=== PATIENT | male | born 1985 | race Hispanic/Latino ===

== ENCOUNTER 2020-11-12 09:48 | Emergency (ER) | payer SELFPAY | END 2020-11-12 10:49 | disposition home or self-care (01) | LOC: EDH 09:48 | DX: H10.021 Other mucopurulent conjunctivitis, right eye (principal); Z72.0 Tobacco use ==

== ENCOUNTER 2020-12-25 03:07 | Inpatient (IN) | payer OTHER ==
[~2020-12-25] VITALS: Ht 167.6 cm; Wt 107.8 kg
[2020-12-25] VITALS (22 sets, daily range): BP systolic 120–152; BP diastolic 61–94
[2020-12-25] MEDS ORDERED: SODIUM CHLORIDE 0.9% 1000ML 1,000 ML IV ONE (03:26)
[2020-12-25] MEDS ORDERED: ONDANSETRON HCL 4 MG/2 ML VIAL ONE ×5 (03:26→15:45)
[2020-12-25] MEDS ORDERED: HYDROMORPHONE HCL 0.5 MG/0.5 ML ML ONE ×2 (03:33→05:22)
[2020-12-25 03:38] LABS: BASOPHILS % (AUTO) 0.3 % (0.0-5.0); EOSINOPHILS % (AUTO) 0.4 % (0.0-8.0); HEMATOCRIT 45.8 % (42-54); LYMPHOCYTES % (AUTO) 9.3 % (21.0-51.0); MEAN CORPUSCULAR HEMOGLOBIN 26.8 pg (27.0-33.0); MEAN CORPUSCULAR HGB CONC 34.5 g/dL (32.0-36.0); MEAN CORPUSCULAR VOLUME 77.6 fL (79-99); MONOCYTES % (AUTO) 5.2 % (3.0-13.0); NEUTROPHILS % (AUTO) 84.4 % (40.0-77.0); PLATELET COUNT (AUTO) 326 K/uL (130-400); RED CELL DISTRIBUTION WIDTH 13.1 % (11.0-15.5); WHITE BLOOD COUNT (AUTO) 14.6 K/uL (4.8-10.8)
[2020-12-25 03:52] LABS: ALBUMIN 4.3 g/dL (3.5-5.0); BILIRUBIN,TOTAL 0.7 mg/dL (0.2-1.0); CREATININE 1.2 mg/dL (0.5-1.5); POTASSIUM 3.7 mmol/L (3.5-5.1); TOTAL PROTEIN, SERUM 8.2 g/dL (6.0-8.3)
[2020-12-25] MEDS ORDERED: PROCHLORPERAZINE EDISYLATE 10 MG/2 ML VIAL ONE (05:22)
[2020-12-25 05:25] LABS: APPEARANCE,URINE Turbid (CLEAR); BILIRUBIN,URINE Negative (NEGATIVE); COLOR,URINE Yellow (YELLOW); GLUCOSE, URINE (UA) Negative (NEGATIVE); KETONES,URINE >=80 mg/dL (NEGATIVE); LEUKOCYTE ESTERASE ,URINE Negative (NEGATIVE); NITRATE,URINE Negative (NEGATIVE); OCCULT BLOOD,URINE Negative (NEGATIVE); PROTEIN,URINE Negative (NEGATIVE)
[2020-12-25 05:32] LABS: RBC,URINE None Seen /HPF (0-1)
[2020-12-25 05:33] LABS: AMORPHOUS SEDIMENT,UR Moderate /LPF (None Seen); BACTERIA,URINE Rare /HPF (None Seen); WBC,URINE None Seen /HPF (0-1)
[2020-12-25] MEDS ORDERED: IOHEXOL 350 MG/ML 100ML INFUS..BTL IV ONE (07:08)
[2020-12-25] MEDS ORDERED: MORPHINE SULFATE 4 MG/1ML SYG ONE (09:32)
[2020-12-25] MEDS ORDERED: ZOSYN 3.375GM+NS 50ML 50 ML IV ONE (09:32)
[2020-12-25] MEDS ORDERED: LIDOCAINE PF 2% 5ML ABBOJECT ONE (13:15)
[2020-12-25] MEDS ORDERED: SUCCINYLCHOLINE CHLORIDE 20 MG/ML 10 ML VIAL ONE (13:15)
[2020-12-25] MEDS ORDERED: DEXAMETHASONE SOD PHOSPHATE 10MG/ML 1ML VIAL ONE (13:16)
[2020-12-25] MEDS ORDERED: PROPOFOL 10 MG/ML 20ML VIAL IV ONE (13:16)
[2020-12-25] MEDS ORDERED: GLYCOPYRROLATE 1 MG/5 ML SYRINGE ONE (13:16)
[2020-12-25] MEDS ORDERED: MIDAZOLAM HCL 1 MG/ML 2ML VIAL ONE (13:16)
[2020-12-25] MEDS ORDERED: NEOSTIGMINE 5MG/5ML SYR IV ONE (13:16)
[2020-12-25] MEDS ORDERED: FENTANYL CITRATE PF 50 MCG/1 ML 2ML VIAL ONE ×2 (13:17→14:44)
[2020-12-25] MEDS ORDERED: ROCURONIUM 10MG/1ML SYR 10 MG/ML ML ONE (13:17)
[2020-12-25] MEDS ORDERED: LACTATED RINGERS 1000ML 1,000 ML IV ONE ×2 (14:04→17:22)
[2020-12-25] MEDS ORDERED: BUPIVACAINE/PF 0.5% 30ML VIAL ONE (14:24)
[2020-12-25] MEDS ORDERED: MEPERIDINE-PF 25 MG/ML SYG ONE (15:35)
[2020-12-25] MEDS ORDERED: KETOROLAC TROMETHAMINE 30MG/ML IM PRN (16:45)
[2020-12-25] MEDS ORDERED: MORPHINE SULFATE 4 MG/1ML SYG IVP PRN (16:45)
[2020-12-25] MEDS ORDERED: ONDANSETRON HCL 4 MG/2 ML VIAL IVP PRN (16:45)
[2020-12-25] MEDS: ZOSYN 3.375GM+NS 50ML 50 ML IV SCH (17:31)
[2020-12-25] MEDS ORDERED: KETOROLAC TROMETHAMINE 30MG/ML ONE (20:20)
[2020-12-25] MEDS: LACTATED RINGERS 1000ML 1,000 ML IV SCH (20:30)
[2020-12-25] MEDS ORDERED: KETOROLAC TROMETHAMINE 30MG/ML IV PRN (22:45)
[2020-12-26] MEDS: ZOSYN 3.375GM+NS 50ML 50 ML IV SCH ×4 (01:00→23:51)
[2020-12-26 03:48] VITALS: BP 139/81
[2020-12-26] MEDS: LACTATED RINGERS 1000ML 1,000 ML IV SCH ×3 (04:20→21:36)
[2020-12-26 05:57] LABS: HEMATOCRIT 37.6 % (42-54); MEAN CORPUSCULAR HEMOGLOBIN 26.8 pg (27.0-33.0); MEAN CORPUSCULAR HGB CONC 33.2 g/dL (32.0-36.0); MEAN CORPUSCULAR VOLUME 80.7 fL (79-99); RED BLOOD CELL COUNT(AUTO) 4.66 MIL/uL (4.50-6.20); RED CELL DISTRIBUTION WIDTH 13.3 % (11.0-15.5); WHITE BLOOD COUNT (AUTO) 17.5 K/uL (4.8-10.8)
[2020-12-26 06:03] LABS: CREATININE 1.2 mg/dL (0.5-1.5); POTASSIUM 4.1 mmol/L (3.5-5.1)
[2020-12-26] MEDS: ACETAMINOPHEN-CODEINE 300/30MG TAB PO PRN ×3 (07:55→18:28)
[2020-12-26 08:04] VITALS: BP 141/90
[2020-12-26 11:37] VITALS: BP 121/90
[2020-12-26 15:56] VITALS: BP 126/79
[2020-12-26 19:39] VITALS: BP 148/86
[2020-12-26 23:31] VITALS: BP 133/81
[2020-12-27 03:41] VITALS: BP 142/86
[2020-12-27] MEDS: LACTATED RINGERS 1000ML 1,000 ML IV SCH ×3 (05:03→19:41)
[2020-12-27 07:57] LABS: BASOPHILS % (AUTO) 0.4 % (0.0-5.0); EOSINOPHILS % (AUTO) 0.1 % (0.0-8.0); HEMATOCRIT 33.6 % (42-54); LYMPHOCYTES % (AUTO) 7.1 % (21.0-51.0); MEAN CORPUSCULAR HEMOGLOBIN 27.3 pg (27.0-33.0); MEAN CORPUSCULAR HGB CONC 34.2 g/dL (32.0-36.0); MEAN CORPUSCULAR VOLUME 79.6 fL (79-99); MONOCYTES % (AUTO) 8.3 % (3.0-13.0); NEUTROPHILS % (AUTO) 83.3 % (40.0-77.0); PLATELET COUNT (AUTO) 262 K/uL (130-400); RED BLOOD CELL COUNT(AUTO) 4.22 MIL/uL (4.50-6.20); RED CELL DISTRIBUTION WIDTH 13.1 % (11.0-15.5); WHITE BLOOD COUNT (AUTO) 16.7 K/uL (4.8-10.8)
[2020-12-27 08:00] VITALS: BP 136/89
[2020-12-27 08:12] LABS: POTASSIUM 3.7 mmol/L (3.5-5.1)
[2020-12-27] MEDS: ZOSYN 3.375GM+NS 50ML 50 ML IV SCH ×2 (09:49→17:57)
[2020-12-27 12:00] VITALS: BP 143/87
[2020-12-27] MEDS ORDERED: IPRATROPIUM/ALBUTEROL SULFATE 3 ML SOLUTION IH SCH (16:30)
[2020-12-27 17:13] VITALS: BP 151/103
[2020-12-27] MEDS: GUAIFENESIN-DM 200/20 MG 10 ML PO PRN (17:57)
[2020-12-27] MEDS ORDERED: IPRATROPIUM/ALBUTEROL SULFATE 3 ML SOLUTION IH PRN (18:00)
[2020-12-27 20:00] VITALS: BP 123/80
[2020-12-28] VITALS: BP 143/90
[2020-12-28] MEDS: ZOSYN 3.375GM+NS 50ML 50 ML IV SCH ×3 (00:39→18:08)
[2020-12-28 04:00] VITALS: BP 134/85
[2020-12-28] MEDS: LACTATED RINGERS 1000ML 1,000 ML IV SCH ×3 (06:16→20:30)
[2020-12-28 07:12] LABS: BASOPHILS % (AUTO) 0.3 % (0.0-5.0); EOSINOPHILS % (AUTO) 0.2 % (0.0-8.0); HEMATOCRIT 34.3 % (42-54); LYMPHOCYTES % (AUTO) 5.7 % (21.0-51.0); MEAN CORPUSCULAR HEMOGLOBIN 26.8 pg (27.0-33.0); MEAN CORPUSCULAR HGB CONC 33.8 g/dL (32.0-36.0); MEAN CORPUSCULAR VOLUME 79.2 fL (79-99); MONOCYTES % (AUTO) 8.1 % (3.0-13.0); NEUTROPHILS % (AUTO) 84.5 % (40.0-77.0); PLATELET COUNT (AUTO) 306 K/uL (130-400); RED BLOOD CELL COUNT(AUTO) 4.33 MIL/uL (4.50-6.20); RED CELL DISTRIBUTION WIDTH 12.8 % (11.0-15.5)
[2020-12-28 07:21] LABS: POTASSIUM 3.6 mmol/L (3.5-5.1)
[2020-12-28 07:41] VITALS: BP 140/83
[2020-12-28 17:55] VITALS: BP 145/91
[2020-12-28] MEDS: GUAIFENESIN-DM 200/20 MG 10 ML PO PRN (18:09)
[2020-12-28 20:00] VITALS: BP 137/75
[2020-12-29] VITALS: BP 135/76
[2020-12-29] MEDS: ZOSYN 3.375GM+NS 50ML 50 ML IV SCH ×2 (00:02→10:10)
[2020-12-29] MEDS: LACTATED RINGERS 1000ML 1,000 ML IV SCH (00:12)
[2020-12-29 04:00] VITALS: BP 125/70
[2020-12-29 05:29] LABS: BASOPHILS % (AUTO) 0.7 % (0.0-5.0); EOSINOPHILS % (AUTO) 0.7 % (0.0-8.0); HEMATOCRIT 32.4 % (42-54); LYMPHOCYTES % (AUTO) 9.5 % (21.0-51.0); MEAN CORPUSCULAR HEMOGLOBIN 27.2 pg (27.0-33.0); MONOCYTES % (AUTO) 14.2 % (3.0-13.0); NEUTROPHILS % (AUTO) 72.8 % (40.0-77.0); PLATELET COUNT (AUTO) 325 K/uL (130-400); RED BLOOD CELL COUNT(AUTO) 4.05 MIL/uL (4.50-6.20); RED CELL DISTRIBUTION WIDTH 12.6 % (11.0-15.5); WHITE BLOOD COUNT (AUTO) 10.2 K/uL (4.8-10.8)
[2020-12-29 05:38] LABS: POTASSIUM 3.8 mmol/L (3.5-5.1)
[2020-12-29 09:49] VITALS: BP 138/84
[2020-12-29] MEDS ORDERED: AMOX-429 PO (13:12)
[2020-12-29 13:32] VITALS: BP 136/80
== END 2020-12-29 15:15 | disposition home or self-care (01) | DRG 342 ==
LOC: EDH 03:07 → OBSVTOIN 08:30 → EDHIP 08:30 → 3DH 16:18
PROVIDERS: ADMIT Surgery; ATTEND Surgery
PROC: 0DTJ4ZZ Resection of Appendix, Percutaneous Endoscopic Approach (ICD-10-PCS; principal; 2020-12-25 14:31)
DX: K35.80 Unspecified acute appendicitis (principal); E87.1 Hypo-osmolality and hyponatremia; K76.0 Fatty (change of) liver, not elsewhere classified; B96.20 Unspecified Escherichia coli [E. coli] as the cause of diseases classified elsewhere
CPT/HCPCS: 36415; 74018; 74177; 76705; 80048; 80053; 81001; 83690; 84484; 85025; 85027; 87070; 87076; 87077; 87186; 93005; 94640; 94664; G0378; J0330; J0780; J1100; J1170; J1885; J2001; J2175; J2250; J2270; J2405; J2543; J2704; J2710; J3010; J3490; J7030; J7120; Q9967

== ENCOUNTER 2021-02-03 12:09 | Emergency (ER) | payer OTHER ==
[~2021-02-03 12:09] MED LIST: AMOX-429 PO
[2021-02-03] MEDS ORDERED: ONDANSETRON 4MG INJ ONE (13:22)
[2021-02-03] MEDS ORDERED: ZOSYN 3.375GM+NS 50ML 50 ML IV ONE (13:22)
[2021-02-03] MEDS ORDERED: MORPHINE 4 MG SYG ONE (13:23)
[2021-02-03 14:30] LABS: BASOPHILS % (AUTO) 0.6 % (0.0-5.0); EOSINOPHILS % (AUTO) 3.5 % (0.0-8.0); HEMATOCRIT 40.7 % (42-54); LYMPHOCYTES % (AUTO) 18.3 % (21.0-51.0); MEAN CORPUSCULAR HEMOGLOBIN 25.7 pg (27.0-33.0); MEAN CORPUSCULAR HGB CONC 32.4 g/dL (32.0-36.0); MEAN CORPUSCULAR VOLUME 79.3 fL (79-99); MONOCYTES % (AUTO) 10.9 % (3.0-13.0); PLATELET COUNT (AUTO) 340 K/uL (130-400); RED BLOOD CELL COUNT(AUTO) 5.13 MIL/uL (4.50-6.20); RED CELL DISTRIBUTION WIDTH 14.7 % (11.0-15.5); WHITE BLOOD COUNT (AUTO) 8.7 K/uL (4.8-10.8)
[2021-02-03 14:41] LABS: APPEARANCE,URINE Clear (CLEAR); BILIRUBIN,URINE Negative (NEGATIVE); COLOR,URINE Yellow (YELLOW); GLUCOSE, URINE (UA) Negative (NEGATIVE); KETONES,URINE Negative (NEGATIVE); LEUKOCYTE ESTERASE ,URINE Negative (NEGATIVE); NITRATE,URINE Negative (NEGATIVE); OCCULT BLOOD,URINE Negative (NEGATIVE); PH,URINE 5.5 (5.0-8.0); PROTEIN,URINE Negative (NEGATIVE)
[2021-02-03 14:48] LABS: CREATININE 0.9 mg/dL (0.5-1.5); POTASSIUM 4.1 mmol/L (3.5-5.1)
[2021-02-03 14:52] LABS: ALBUMIN 3.6 g/dL (3.5-5.0); BILIRUBIN,TOTAL 0.6 mg/dL (0.2-1.0); TOTAL PROTEIN, SERUM 7.9 g/dL (6.0-8.3)
[2021-02-03] MEDS ORDERED: IOHEXOL 350 MG/ML 100ML INFUS..BTL IV ONE (15:17)
== END 2021-02-03 18:38 | disposition home or self-care (01) ==
LOC: EDH 12:09
DX: T81.49XA Infection following a procedure, other surgical site, initial encounter (principal); Z90.49 Acquired absence of other specified parts of digestive tract; Z72.0 Tobacco use
CPT/HCPCS: 36415; 74174; 80053; 81003; 83605; 83690; 85025; 87426; 96365; 96366; 96375; 99284; J2270; J2405; J2543; Q9967

== ENCOUNTER → 2023-03-05 | Emergency (ER) | payer BC, OTHER ==
[~2023-03-05] VITALS: Ht 170.2 cm; Wt 106.6 kg
[2023-03-05 16:28] VITALS: BP 149/85
== END ==
LOC: EDH 16:27
DX: H92.01 Otalgia, right ear (principal); Z53.21 Procedure and treatment not carried out due to patient leaving prior to being seen by health care provider
CPT/HCPCS: 99281

== ENCOUNTER 2025-09-18 14:21 | Emergency (ER) | payer BC ==
[~2025-09-18] VITALS: Ht 170.2 cm; Wt 106.6 kg
[2025-09-18 14:31] VITALS: BP 138/89; PULSE 77; RESP 18; TEMP 97.1; O2SAT 99
--- NOTE | 2025-09-18 14:31 | ERN ---
ED Note History of Present Illness Stated Complaint: RASH Chief Complaint: Skin Rash/Abscess Time Seen by MD: 14:24 Dictation: PATIENT IS A 40-YEAR-OLD MALE COMING IN WITH A PRURITIC RASH THAT IS DIFFUSELY DISTRIBUTED TO HIS BODY TO INCLUDE HIS WEBS OF HIS FINGERS UNDER HIS ARMS BACK CHEST LEGS. DONE ANYTHING PRIOR TO ARRIVAL STATES HE HAS NO PRIMARY CARE DOCTOR SAID THE ONSET WAS TWO WEEKS AGO. Allergies: Coded Allergies: No Known Allergies (Unverified Allergy, Unknown, 11/12/20) Home Meds Active Scripts Amoxicillin/Potassium Clav (Augmentin 875-125 Tablet) 1 Each Tablet, 1 EACH PO BID for 7 Days, #14 TAB Prov:DICK,MADAN DIRECTOR OF FUNDRAISING 12/29/20 Past Medical History Past Medical History: No Pertinent History Surgical History: None RN Note Reviewed/Agreed w/PFSH: Yes Review of System Dictation A NORMAL ROS CONSTITUTIONAL: NEGATIVE EXCEPT FOR HPI HEAD/FACE: NEGATIVE EXCEPT FOR HPI EENT: NEGATIVE EXCEPT FOR HPI RESPIRATORY: NEGATIVE EXCEPT FOR HPI GASTROINTESTINAL/ABDOMINAL: NEGATIVE EXCEPT FOR HPI GENITOURINARY: NEGATIVE EXCEPT FOR HPI MUSCULOSKELETAL: NEGATIVE EXCEPT FOR HPI INTEGUMENTARY: NEGATIVE EXCEPT FOR HPI NEUROLOGICAL/PSYCH: NEGATIVE EXCEPT FOR HPI RASH HEMATOLOGIC/LYMPHATIC: NEGATIVE EXCEPT FOR HPI ALL SYSTEMS NEGATIVE, EXCEPT NOTED ABOVE. 13 POINT REVIEW OF SYSTEMS ASSESSED AND ALL NEGATIVE EXCEPT FOR ABOVE. Physical Exam Dictation VITAL SIGNS REVIEWED GENERAL APPEARANCE: ALERT, ORIENTED X 3, MILD ACUTE DISTRESS, WELL DEVELOPED, NOURISHED. HEAD AND FACE: NON-TRAUMATIC. EYES: PERRL, PINK CONJUNCTIVAS, EYELID NO TRAUMA, ANTERIOR CHAMBER WITH ARCUS SENILIS. EARS: PINNAS INTACT AND NO SIGNS OF TRAUMA OR ERYTHEMA EAR CANALS CLEAR AND NO DISCHARGE TM NO ERYTHEMA NOSE: NO DISCHARGE, NO BLEEDING. OROPHARYNX: MOUTH NORMAL, TONGUE PINK, PHARYNX CLEAR,NO ERYTHEMA, TONSILS NO EXUDATES, NO ABSCESSES NOTED, MUCOUS MEMBRANE MOIST NECK: SUPPLE, NON-TENDER, NO THYROMEGALY, NO MASSES, NO JVD, NO BRUITS BREAST:DEFERRED CHEST:NO TENDERNESS, NO CREPITUS, NO PARADOXICAL MOVEMENT, NO RETRACTIONS LUNGS:CLEAR, WELL-VENTILATED, SYMMETRIC, NO RALES, NO WHEEZING, NO RHONCHI, NO STRIDOR, GOOD BREATH SOUNDS BILATERALLY HEART: REGULAR RATE, REGULAR RHYTHM, NO MURMUR, NO GALLOPS VASCULAR: NO PERIPHERAL EDEMA, ABDOMEN: SOFT, POSITIVE BOWEL SOUNDS, NONDISTENDED, NO GUARDING, NONTENDER, NO REBOUND, NO MASSES NO HEPATOMEGALY, NO SPLENOMEGALY, NO MONK'S SIGN, NO HERNIAS. RECTAL: DEFERRED GENITAL: DEFERRED NEUROLOGICAL: NORMAL SPEECH, MOTOR FUNCTION INTACT, SENSORY FUNCTION INTACT MUSCULOSKELETAL: NECK NONTENDER, FULL RANGE OF MOTION, BACK NONTENDER, FULL RANGE OF MOTION, EXTREMITIES: NONTENDER, FULL RANGE OF MOTION SKIN: COLOR PINK, DIFFUSE DISCRETE MACULAR RASH TO BODY WEBS OF HIS FINGERS CHEST BACK ARMS. HISTORY WITH SCABIES INFESTATION LYMPHATIC: DEFERRED Results (Laboratory/Radiology) Labs Reviewed?: Yes Medical Decision Making [facility] 1428/NO LABS OR IMAGING INDICATED. PATIENT WILL BE TREATED EMPIRICALLY FOR SCABIES INFESTATION WE WILL PRESCRIBED IVERMECTIN AND BENADRYL PATIENT TOLD TO WASH HIS CLOTHES AFTER TREATMENT DX & DISP Disposition: Discharge Departure Impression: Primary Impression: Scabies infestation Additional Impression: Itching Condition: Stable Scripts Diphenhydramine HCl (Benadryl) 50 Mg Cap 50 MG PO Q6H for itching/rash, #20 CAP 0 Refills Prov: CROW BARON 09/18/25 Ivermectin (Stromectol) 3 Mg Tab 6 TAB PO ONCE, #12 TAB 0 Refills TAKE SIX TABLETS BY MOUTH X1 DOSE. REPEAT THE DOSE IN 10 DAYS Prov: CROW BARON 09/18/25 Additional Instructions: FOLLOW-UP WITH PRIMARY CARE PROVIDER IN 1 TO 2 DAYS. TAKE MEDICATIONS DIRECTED HERE IN THE EMERGENCY ROOM. OKAY TO CONTINUE HOME MEDICATIONS UNLESS OTHERWISE DISCUSSED DURING YOUR VISIT IN THE EMERGENCY ROOM TODAY. RETURN TO YOUR NEAREST EMERGENCY ROOM IF SYMPTOMS WORSEN OR IF THERE IS NO IMPROVEMENT. CALL 911 IF YOU NEED IMMEDIATE ASSISTANCE. TAKE TYLENOL OR MOTRIN VEUO-[id number]-[id number] NEEDED AND IF NO CONTRAINDICATIONS ARE PRESENT. INCREASE ORAL HYDRATION. A WOUND CULTURE OR URINE CULTURE WAS ORDERED HERE IN THE EMERGENCY ROOM DEPARTMENT PLEASE FOLLOW-UP WITH PRIMARY CARE PROVIDER AND ADVISE THEM TO GET REPEAT PORTS FROM OUR FACILITY. IF YOU HAD ANY MARICRUZ WRAP/SPLINTS THAT WERE APPLIED HERE, PLEASE DO NOT REMOVE THEM UNTIL YOU SEE YOUR PRIMARY CARE OR SPECIALTY. TAKE STROMECTROL DIRECTED UNTIL GONE. TAKE BENADRYL EVERY 6 HOURS FOR THREE DOSES. 24 HOURS AFTER THE 1ST DOSE OF THE STROMECTROL, WASH ALL YOUR BED SHEETS AND CLOSE IN HOT WATER. Referrals: SELF,REFERRAL (PCP) Time of Disposition: 14:28 I have reviewed the case, and I agree with, Diagnosis and Plan CROW BARON INTEGRATION TECHNICIAN Sep 18, 2025 14:31
--- NOTE | 2025-09-18 14:43 | NUR ---
PT STABLE NO DISTRESS, VITALS WNL NO C/O PAIN, NO IV AT THIS TIME, PT GIVEN INSTRUCTIONS FOR HOME, RX SENT PT PHARMACY WILL START TODAY, F/U WITH PCP. PT DRIVEN HOME BY SPOUSE.
== END 2025-09-18 14:44 | disposition home or self-care (01) ==
LOC: EDH 14:21
DX: B86 Scabies (principal)
CPT/HCPCS: 99283